=== PATIENT | female | born 1980 | race Caucasian/White ===

== ENCOUNTER → 2018-08-26 09:22 | Outpatient (CLI) | payer OTHER, SELFPAY ==
[2018-08-26 09:55] LABS: Basophils % 0.7 % (0.1-2.0); Eosinophils # 0.1 K/mm3 (0.0-0.4); Eosinophils % 1.7 % (0.1-12.0); Hematocrit 39.3 % (37.0-47.0); Hemoglobin 12.5 g/dL (12.2-16.2); Lymphocytes # 1.5 K/mm3 (0.7-4.5); Lymphocytes % 31.4 % (10-50); Mean Corpuscular HGB Conc 31.8 g/dL (31.8-35.4); Mean Corpuscular Hemoglobin 30.1 pg (27.0-31.2); Mean Corpuscular Volume 94.7 fl (81-99); Mean Platelet Volume 7.7 fl (7.4-10.4); Monocytes # 0.2 K/mm3 (0.1-1.0); Monocytes % 4.9 % (1.7-9.3); Neutrophils # 2.8 K/mm3 (1.8-7.8); Neutrophils % 61.2 % (37.0-80.0); Platelet Count 230 K/mm3 (142-424); Red Blood Count 4.15 M/mm3 (4.20-5.40); Red Cell Distribution Width 13.1 % (11.5-17.5); White Blood Count 4.6 K/mm3 (4.8-10.8)
[2018-08-26 10:10] VITALS: PULSE 56
--- NOTE | 2018-08-26 10:30 | MM_ITS ---
MM Dig screening mamm BI w/CAD ORDERING PHYSICIAN : Lauren Napoles PATIENT AGE: 38 years GENDER: Female COMPARISON: Baseline mammogram. No previous mammogram for comparison CT chest from April 2016 utilizing and slightly helpful. INDICATION: 38-year-old Routine the baseline: screening mammogram. No hormones. No new complaints. Noncontributory family history TECHNIQUE: Standard CC and MLO images were obtained. R2 CAD reviewed. FINDINGS: Mild to moderate breast density with moderate fibroglandular elements more evident at the left breast than right. Mild asymmetry.. CAD computer review highlights no areas of concern RIGHT BREAST:No areas of significant concern Minimal island of glandular tissue at the inferior lateral right breastq likely corresponds and stable to a area seen on previous CT study. LEFT BREAST:No areas of significant concern Fibroglandular elements most notable towards upper-outer quadrant IMPRESSION: Baseline mammogram. No suspicious findings. No areas of significant concern. Mild asymmetry Recommended and would encourage follow-up in one year to confirm stable baseline character given the mild asymmetry. BI-RADS Category: 2 Benign Finding(s) RECOMMENDED FOLLOW-UP: 1YR 1 YEAR FOLLOW-UP (A letter has been sent to the patient regarding results of the study.)
[2018-08-26 11:35] LABS: Alanine Aminotransferase 15 U/L (12-78); Albumin Level 3.6 gm/dL (3.4-5.0); Alkaline Phosphatase 38 U/L (46-116); Aspartate Amino Transferase 10 U/L (15-37); Bilirubin,Total 0.3 mg/dL (0.2-1.0); Blood Urea Nitrogen 10 mg/dL (7-18); Calcium 9.1 mg/dL (8.5-10.1); Carbon Dioxide 29 mmol/L (21.0-32.0); Chloride 101 mmol/L (98-107); Cholesterol 170 mg/dL (140-200); Creatinine,Serum 0.75 mg/dL (0.55-1.02); Estimated Glomerular Filt Rate 86 ml/min (>60); GFR (African American) 104 ML/MIN (>60); Globulin 3.6 gm/dl (1.3-3.2); Glucose 94 mg/dL (74-106); HDL Cholesterol 56 mg/dL (29-89); LDL Cholesterol 106 mg/dL (0-130); Sodium 147 mmol/L (136-145); T4 (Thyroxine) 8.2 ug/dl (4.7-13.3); Thyroid Stimulating Hormone 1.77 uIU/ml (0.358-3.740); Total Protein,Serum 7.2 gm/dL (6.4-8.2); Triglycerides 42 mg/dL (30-200); VLDL Cholesterol 8 mg/dL (0-40)
[2018-08-27 11:18] LABS: Hep A Ab, IgM Negative (Negative); Hepatitis B Core Antibody IgM Negative (Negative); Hepatitis B Surface Antigen Negative (Negative)
[2018-08-27 11:19] LABS: Hepatitis C Antibody 0.2 s/co ratio (0.0-0.9)
== END ==
PROVIDERS: PCP Physician Assistant; Visit Provider Nurse Practitioner Family
DX: Z12.31 Encounter for screening mammogram for malignant neoplasm of breast (principal); Z13.220 Encounter for screening for lipoid disorders; J44.9 Chronic obstructive pulmonary disease, unspecified; F41.9 Anxiety disorder, unspecified; F32.9 Major depressive disorder, single episode, unspecified
CPT/HCPCS: 36415; 77067; 80053; 80061; 80074; 84436; 84443; 85025; 94060; 94640

== ENCOUNTER → 2018-08-26 09:35 | Outpatient (CLI) | payer OTHER, SELFPAY | PROVIDERS: Visit Provider Nurse Practitioner Family | DX: Z11.59 Encounter for screening for other viral diseases (principal) ==

== ENCOUNTER → 2018-10-20 13:48 | Outpatient (CLI) | payer OTHER, SELFPAY ==
--- NOTE | 2018-10-20 13:49 | US_ITS ---
US transvaginal Ordering Physician: Kalin Slater MD Patient Age: 38 years: Female HISTORY: ITS.REASON: llqp, dyspareunia status post hysterectomy. TECHNIQUE: Transvaginal pelvic ultrasound COMPARISON : CT abdomen and pelvis from 09/28/2018 FINDINGS Uterus surgically removed . . Right ovary is been removed. Left ovary appears normal . Normal size left ovary measuring 2.8 x 1.9 x 2.45 cm. Scattered small follicles throughout. None of the follicles measuring over 6 mm size.. . No fluid in cul-de-sac. Bowel loops seen elsewhere throughout the pelvis. IMPRESSION: Uterus and right ovary surgically removed. Remaining left ovary appears normal, with scattered small follicles throughout. No fluid in cul-de-sac
== END ==
PROVIDERS: PCP Physician Assistant; Visit Provider Nurse Practitioner Obstetrics & Gynecology
DX: R10.32 Left lower quadrant pain (principal); N94.10 Unspecified dyspareunia
CPT/HCPCS: 76830

== ENCOUNTER → 2020-04-16 10:31 | Outpatient (CLI) | payer MEDICAID, SELFPAY ==
[2020-04-16 11:08] LABS: Basophils # 0.1 K/mm3 (0-0.2); Basophils % 0.5 % (0.1-2.0); Eosinophils # 0.1 K/mm3 (0.0-0.4); Eosinophils % 1.3 % (0.1-12.0); Hematocrit 40.4 % (37.0-47.0); Hemoglobin 13.1 g/dL (12.2-16.2); Lymphocytes # 1.8 K/mm3 (0.7-4.5); Lymphocytes % 19.8 % (10-50); Mean Corpuscular HGB Conc 32.5 g/dL (31.8-35.4); Mean Corpuscular Volume 95.4 fl (81-99); Mean Platelet Volume 7.9 fl (7.4-10.4); Monocytes # 0.6 K/mm3 (0.1-1.0); Monocytes % 6.5 % (1.7-9.3); Neutrophils # 6.6 K/mm3 (1.8-7.8); Neutrophils % 71.8 % (37.0-80.0); Platelet Count 249 K/mm3 (142-424); Red Blood Count 4.23 M/mm3 (4.20-5.40); Red Cell Distribution Width 12.9 % (11.5-17.5); White Blood Count 9.2 K/mm3 (4.8-10.8)
[2020-04-16 11:53] LABS: Chloride 104 mmol/L (98-107)
[2020-04-16 11:54] LABS: Potassium 4.5 mmoL/L (3.5-5.1); Sodium 138 mmol/L (136-145)
[2020-04-16 11:56] LABS: Alanine Aminotransferase 11 U/L (12-78); Albumin/Globulin Ratio 1.4 (1.1-1.8); Alkaline Phosphatase 29 U/L (38-126); Anion Gap 12.5 mEq/L (5-15); Aspartate Amino Transferase 25 U/L (14-36); Bilirubin,Total 0.5 mg/dl (0.2-1.3); Blood Urea Nitrogen 9 mg/dl (7-17); Carbon Dioxide 26 mmol/L (22.0-30.0); Estimated Glomerular Filt Rate 111 ml/min (>60); GFR (African American) 134 ML/MIN (>60); Globulin 2.9 g/dL (1.3-3.2); Total Protein,Serum 6.9 g/dl (6.3-8.2)
[2020-04-16 11:57] LABS: Calcium 9.4 mg/dl (8.4-10.2); Chol/HDL Ratio 3.8 (1-3.5); Cholesterol 207 mg/dl (140-200); Glucose 87 mg/dl (74-100); HDL Cholesterol 55 mg/dl (40-60); Triglycerides 74 mg/dl (30-150); VLDL Cholesterol 15 mg/dL (0-40)
[2020-04-16 12:08] LABS: Direct LDL Cholesterol 138.95 mg/dL (100-129)
[2020-04-16 12:13] LABS: Free Thyroxine Index 3.1 ug/dL (5.93-13.13); T4 (Thyroxine) 10.9 ug/dl (5.53-11.0); Triiodothryronine (T3) Uptake 28 % (23.5-40.5)
[2020-04-16 12:27] LABS: Thyroid Stimulating Hormone 3.25 uIU/mL (0.465-4.68)
[2020-04-16 13:32] LABS: Amphetamine/Metha Screen,Urine Negative ng/ml (<1000); Barbiturates Screen,Urine Negative ng/ml (<200)
[2020-04-16 13:33] LABS: Benzodiazepines Screen,Urine Negative ng/ml (<200); Cannabinoid Screen,Urine Positive ng/ml (<50)
[2020-04-16 13:34] LABS: Cocaine Screen,Urine Negative ng/ml (<300)
[2020-04-16 13:35] LABS: Methadone Screen,Urine Negative ng/ml (<300); Opiate Screen,Urine Negative ng/ml (<300)
[2020-04-16 13:36] LABS: Phencyclidine Screen,Urine Negative ng/ml (<25)
== END ==
PROVIDERS: Visit Provider Nurse Practitioner Psychiatric/Mental Health
DX: F31.64 Bipolar disorder, current episode mixed, severe, with psychotic features (principal)
CPT/HCPCS: 36415; 80053; 80061; 80305; 84436; 84443; 84479; 85025

== ENCOUNTER → 2020-11-20 18:09 | Outpatient (CLI) | payer MEDICAID, SELFPAY ==
[2020-11-20 18:33] LABS: Basophils % 0.6 % (0.1-2.0); Eosinophils # 0.1 K/mm3 (0.0-0.4); Eosinophils % 0.8 % (0.1-12.0); Hematocrit 38.7 % (37.0-47.0); Hemoglobin 12.6 g/dL (12.2-16.2); Lymphocytes # 1.9 K/mm3 (0.7-4.5); Lymphocytes % 25.7 % (10-50); Mean Corpuscular HGB Conc 32.6 g/dL (31.8-35.4); Mean Corpuscular Hemoglobin 30.8 pg (27.0-31.2); Mean Corpuscular Volume 94.5 fl (81-99); Mean Platelet Volume 8.9 fl (7.4-10.4); Monocytes # 0.4 K/mm3 (0.1-1.0); Monocytes % 5.1 % (1.7-9.3); Neutrophils % 67.7 % (37.0-80.0); Platelet Count 277 K/mm3 (142-424); Red Blood Count 4.09 M/mm3 (4.20-5.40); Red Cell Distribution Width 13.2 % (11.5-17.5); White Blood Count 7.4 K/mm3 (4.8-10.8)
[2020-11-20 18:37] LABS: Alanine Aminotransferase 15 U/L (12-78); Albumin Level 4.3 g/dl (3.5-5.0); Albumin/Globulin Ratio 1.5 (1.1-1.8); Alkaline Phosphatase 48 U/L (38-126); Anion Gap 11.8 mEq/L (5-15); Aspartate Amino Transferase 27 U/L (14-36); Bilirubin,Total 0.3 mg/dl (0.2-1.3); Blood Urea Nitrogen 3 mg/dl (7-17); Calcium 9.3 mg/dl (8.4-10.2); Carbon Dioxide 29 mmol/L (22.0-30.0); Chloride 102 mmol/L (98-107); Chol/HDL Ratio 4.2 (1-3.5); Cholesterol 237 mg/dl (140-200); Estimated Glomerular Filt Rate 110 ml/min (>60); GFR (African American) 133 ML/MIN (>60); Globulin 2.9 g/dL (1.3-3.2); Glucose 85 mg/dl (74-100); HDL Cholesterol 56 mg/dl (40-60); Potassium 4.8 mmoL/L (3.5-5.1); Sodium 138 mmol/L (136-145); Total Protein,Serum 7.2 g/dl (6.3-8.2); Triglycerides 95 mg/dl (30-150); VLDL Cholesterol 19 mg/dL (0-40)
[2020-11-20 18:48] LABS: Direct LDL Cholesterol 151.62 mg/dL (100-129)
[2020-11-20 18:55] LABS: 25-OH Vitamin D, Total 17.2 ng/mL (30-100); Free T4 (Free Thyroxine) 1.04 ng/dl (0.78-2.19)
[2020-11-20 19:08] LABS: Thyroid Stimulating Hormone 2.64 uIU/mL (0.465-4.68)
== END ==
PROVIDERS: Visit Provider Physician Assistant
DX: F32.9 Major depressive disorder, single episode, unspecified (principal); F41.9 Anxiety disorder, unspecified; J44.9 Chronic obstructive pulmonary disease, unspecified; K21.9 Gastro-esophageal reflux disease without esophagitis; E55.9 Vitamin D deficiency, unspecified
CPT/HCPCS: 80053; 80061; 82306; 84439; 84443; 85025

== ENCOUNTER → 2020-11-29 09:03 | Outpatient (CLI) | payer MEDICAID, SELFPAY ==
--- NOTE | 2020-11-29 09:03 | MM_ITS ---
PROCEDURE: MM DIG SCREENING MAMM BI W/CAD Digital Breast Tomosynthesis Included CLINICAL INDICATION: Breast cancer screening by mamm COMPARISON: MG [facility] MM Dig screening mamm BI w/CAD from 08/26/2018 TECHNIQUE: Standard CC and MLO images and 3D Tomosynthesis was obtained. R2 CAD reviewed. FINDINGS: The breasts are composed of scattered fibroglandular tissue. No dominant mass lesions, suspicious calcification or architectural distortion is noted. Benign appearing calcifications are noted bilaterally. IMPRESSION: No suspicious findings. BI-RAD Category: 2 Benign Finding(s) FOLLOW-UP: 1YR 1 Year Follow-up (A letter has been sent to the patient regarding results of the study.) Dictated by: Denise Barclay 11/30/2020 09:26 Denise Barclay in [place] 11/30/2020 09:26
== END ==
PROVIDERS: PCP Physician Assistant; Visit Provider Physician Assistant
DX: Z12.31 Encounter for screening mammogram for malignant neoplasm of breast (principal); J44.9 Chronic obstructive pulmonary disease, unspecified; F17.210 Nicotine dependence, cigarettes, uncomplicated
CPT/HCPCS: 77063; 77067; 94060; 94726; 94729

== ENCOUNTER 2020-12-03 19:22 | Emergency (ER) | payer MEDICAID, SELFPAY ==
[2020-12-03 19:44] VITALS: BP 100/69; PULSE 79; RESP 17; TEMP 37.1; O2SAT 97; BMI 27.3
[2020-12-03 19:51] VITALS: BP 100/69; PULSE 79; RESP 17; TEMP 37.1; O2SAT 97
[2020-12-03 20:00] LABS: UTC Strep Screen (Rapid) Negative (Negative)
--- NOTE | 2020-12-03 20:39 | HMH.EDUTC ---
[facility] [place] Clinical Impression: Pharyngitis Qualifiers: Pharyngitis/tonsillitis etiology: unspecified etiology Qualified Code(s): J02.9 - Acute pharyngitis, unspecified Disposition: Home, Self-Care Condition on Discharge: Good Instructions: DI for Pharyngitis/Tonsillopharyngitis -- Adult Additional Instructions: Drink plenty of fluids. Take tylenol or ibuprofen for pain or fever. Take the medications as directed. Follow up with your regular doctor. GO TO THE ER FOR ANY WORSENING SYMPTOMS Prescriptions: Azithromycin [Z-Kaleb 250mg Tab*] 250 mg PO UD DOSE PK #6 tab Transmission Status: Received by [facility] Referrals: Vivi Hernandez PA [Primary Care Provider] - Time of Disposition: 20:40 Medical Decision Making - Medical Records Medical records reviewed: No: I reviewed the patient's medical records. - Neno Inquiry Pt receiving controlled substance: No Vital Signs: 12/03/20 19:44 12/03/20 19:51 Temperature 98.7 F 98.7 F Temperature Source Oral Pulse Rate 79 Pulse Rate [Left] 79 Respiratory Rate 17 17 Blood Pressure 100/69 L Blood Pressure [Right Arm] 100/69 L Blood Pressure Mean [Right Arm] 79 02 Sat by Pulse Oximetry 97 - Lab Data Lab results reviewed: Yes: I reviewed the patient's lab results. Lab Results 12/03/20 19:52: Strep Scn Rapid Clinic Negative [facility] [place] HPI - General Stated complaint: sore throat Time Seen by Provider: 12/03/20 20:39 Mode of Arrival: Ambulatory Source of Information: Patient Limitations: No Limitations Description of Symptoms (Recalled from Triage Doc. by RN): Pt c/o throat feeling inflammed and wants a throat culture . HEENT Symptoms (Recalled from RN notes): Yes Resp Symptoms (Recalled from RN notes): No Skin Symptoms (Recalled from RN notes): No MS Symptoms (Recalled from RN notes): No Functional Status (Recalled from RN notes): wnl - History of Present Illness Provider Complaint: She states that she has had a scratchy throat for the past 2 days. She has several children are being treated for strep right now. She denies any fever or chills. - Related Data Previous Rx's Medication Instructions Recorded omeprazole 40 mg capsule,delayed 40 mg PO ONCE 90 Days #90 cap 09/27/18 release buspirone 10 mg tablet See Rx Instructions .ROUTE 08/01/19 .COMPLEX #60 unspecified risperidone 0.5 mg tablet See Rx Instructions .ROUTE 08/01/19 .COMPLEX #60 unspecified tiotropium bromide 1.25 See Rx Instructions .ROUTE 11/17/19 mcg/actuation mist for inhalation .COMPLEX #4 unspecified hydroxyzine pamoate 50 mg capsule See Rx Instructions .ROUTE 05/24/20 .COMPLEX #60 unspecified albuterol sulfate 90 mcg/actuation See Rx Instructions .ROUTE 11/16/20 aerosol inhaler .COMPLEX #18 g budesonide-formoterol HFA 160 2 puff INHALATION BID #10.2 g 11/16/20 mcg-4.5 mcg/actuation aerosol inhaler famotidine 20 mg tablet See Rx Instructions .ROUTE 11/16/20 .COMPLEX #180 tab fluticasone propionate 50 See Rx Instructions .ROUTE 11/16/20 mcg/actuation nasal .COMPLEX #9.9 g spray,suspension atorvastatin 10 mg tablet 10 mg PO HS #30 tab 11/21/20 cholecalciferol (vitamin D3) 25 25 mcg PO DAILY #30 cap 11/21/20 mcg (1,000 unit) capsule ergocalciferol (vitamin D2) 1,250 1,250 mcg PO WEEKLY #5 cap 11/21/20 mcg (50,000 unit) capsule Azithromycin [Z-Kaleb 250mg Tab*] 250 mg PO UD DOSE PK #6 tab 12/03/20 Allergies Allergy/AdvReac Type Severity Reaction Status Date / Time codeine [CODEINE] Allergy Unknown Verified 12/03/20 19:33 - Worker's Comp Is this a Worker's Comp case?: No [facility] History - Hepatitis A Screen Drug use history?: No High risk sexual behaviors?: No History of sexually transmitted infection?: No Currently employed?: No Childcare worker?: No Do you have indoor plumbing?: Yes Do you have electricity?: Yes Attestation statement:: This patient has been screened for Hepatitis A risk factors. I hav
== END 2020-12-03 20:43 | disposition home or self-care (01) ==
PROVIDERS: Emergency Provider Nurse Practitioner Family; PCP Physician Assistant
DX: J02.9 Acute pharyngitis, unspecified (principal); J44.9 Chronic obstructive pulmonary disease, unspecified; K21.9 Gastro-esophageal reflux disease without esophagitis; F41.8 Other specified anxiety disorders; Z79.899 Other long term (current) drug therapy
CPT/HCPCS: 87880; 99202; G0463

== ENCOUNTER 2021-10-07 16:16 | Emergency (ER) | payer MEDICAID, SELFPAY ==
--- NOTE | 2021-10-07 17:43 | HMH.EDUTC ---
[facility] [place] Clinical Impression: Strep throat Disposition: Home, Self-Care Condition on Discharge: Good Instructions: Strep Throat, DI for Strep Throat Additional Instructions: Drink plenty of fluids. Take tylenol or ibuprofen for pain or fever. Take the medications as directed. Follow up with your regular doctor. GO TO THE ER FOR ANY WORSENING SYMPTOMS Throw your tooth brush away and get a new one. Prescriptions: Ondansetron [Zofran 4mg ODT] 4 mg PO Q8HP PRN #20 tab PRN Reason: Nausea Transmission Status: Received by [facility] Amoxicillin/Potassium Clav [Amox-Clav 875-125 mg Tablet] 1 tab PO BID #20 tab Transmission Status: Received by [facility] Benzonatate [Benzonatate 100mg cap] 100 mg PO TIDP PRN #30 cap PRN Reason: Cough Transmission Status: Received by [facility] Referrals: Vivi Hernandez PA [Primary Care Provider] - Time of Disposition: 18:21 Medical Decision Making - Medical Records Medical records reviewed: No: I reviewed the patient's medical records. - Neno Inquiry Pt receiving controlled substance: No Vital Signs: 10/07/21 17:44 10/07/21 18:25 Temperature 98.3 F 98.2 F Temperature Source Oral Oral Pulse Rate 81 Pulse Rate [Left Radial] 83 Respiratory Rate 18 16 Blood Pressure 128/81 Blood Pressure [Right Arm] 130/86 Blood Pressure Mean [Right Arm] 100 02 Sat by Pulse Oximetry 98 Oxygen Delivery Method Room Air - Lab Data Lab results reviewed: Yes: I reviewed the patient's lab results. Lab Results 10/07/21 17:47: Strep Scn Rapid Clinic Positive [place] [facility] [place] - General Stated complaint: EAR PAin, fever,chills Time Seen by Provider: 10/07/21 17:43 - History of Present Illness Provider Complaint: She c/o ear pain and sore throat for the past 2 days. - Related Data Previous Rx's Medication Instructions Recorded omeprazole 40 mg capsule,delayed 40 mg PO ONCE 90 Days #90 cap 09/27/18 release buspirone 10 mg tablet See Rx Instructions .ROUTE 08/01/19 .COMPLEX #60 unspecified risperidone 0.5 mg tablet See Rx Instructions .ROUTE 08/01/19 .COMPLEX #60 unspecified albuterol sulfate 90 mcg/actuation See Rx Instructions .ROUTE 11/16/20 aerosol inhaler .COMPLEX #18 g famotidine 20 mg tablet See Rx Instructions .ROUTE 11/16/20 .COMPLEX #180 tab atorvastatin 10 mg tablet 10 mg PO HS #30 tab 11/21/20 cholecalciferol (vitamin D3) 25 25 mcg PO DAILY #30 cap 11/21/20 mcg (1,000 unit) capsule ergocalciferol (vitamin D2) 1,250 1,250 mcg PO WEEKLY #5 cap 11/21/20 mcg (50,000 unit) capsule Azithromycin [Z-Kaleb 250mg Tab*] 250 mg PO UD DOSE PK #6 tab 12/03/20 carbamide peroxide 6.5 % ear drops 5 drp OTIC DAILY 4 Days #15 ml 12/11/20 tiotropium bromide 18 mcg capsule 1 cap INHALATION DAILY #90 puff 01/22/21 with inhalation device fluticasone propionate 50 See Rx Instructions .ROUTE 03/08/21 mcg/actuation nasal .COMPLEX #16 g spray,suspension hydroxyzine pamoate 50 mg capsule See Rx Instructions .ROUTE 03/26/21 .COMPLEX #60 cap budesonide-formoterol HFA 160 2 inh INHALATION BID #10.2 g 07/03/21 mcg-4.5 mcg/actuation aerosol inhaler Amoxicillin/Potassium Clav 1 tab PO BID #20 tab 10/07/21 [Amox-Clav 875-125 mg Tablet] Benzonatate [Benzonatate 100mg 100 mg PO TIDP PRN #30 cap 10/07/21 cap] Ondansetron [Zofran 4mg ODT] 4 mg PO Q8HP PRN #20 tab 10/07/21 Allergies Allergy/AdvReac Type Severity Reaction Status Date / Time codeine [CODEINE] Allergy Unknown Verified 12/11/20 11:29 [facility] History - Hepatitis A Screen Attestation statement:: This patient has been screened for Hepatitis A risk factors. I have reviewed the patient's past medical history: Yes Medical History: Reports:: Anxiety, Asthma, Chronic Obstructive Pulmonary Disease (COPD), Depression, Gastroesophageal Reflux Disease(GERD) Denies:: Diabetes Mellitus Type 1 Other Medical History: Reports: Anemia
[2021-10-07 17:44] VITALS: BP 130/86; PULSE 83; RESP 18; TEMP 36.8; O2SAT 98; BMI 27.1
[2021-10-07 17:56] LABS: UTC Strep Screen (Rapid) Positive (Negative)
[2021-10-07 18:25] VITALS: BP 128/81; PULSE 81; RESP 16; TEMP 36.8; O2SAT 99
== END 2021-10-07 18:27 | disposition home or self-care (01) ==
PROVIDERS: Emergency Provider Nurse Practitioner Family; PCP Physician Assistant
DX: J02.0 Streptococcal pharyngitis (principal); F41.8 Other specified anxiety disorders; K21.9 Gastro-esophageal reflux disease without esophagitis; F17.210 Nicotine dependence, cigarettes, uncomplicated
CPT/HCPCS: 87880; 99212; G0463

== ENCOUNTER 2021-10-22 18:03 | Emergency (ER) | payer MEDICAID, SELFPAY ==
[2021-10-22 18:08] VITALS: BP 138/89; PULSE 98; RESP 16; TEMP 37.1; O2SAT 100; BMI 23.3
[2021-10-22 18:24] VITALS: BP 123/86; PULSE 88; RESP 18; TEMP 37.3; O2SAT 95; BMI 28.0
[2021-10-22 18:47] LABS: UTC Influenza A Antigen Negative (Negative)
[2021-10-22 18:48] LABS: UTC Influenza B Antigen Negative (Negative)
--- NOTE | 2021-10-22 19:12 | HMH.EDUTC ---
[facility] [place] Disposition Clinical Impression: Vaginal yeast infection Diarrhea Qualifiers: Diarrhea type: unspecified type Qualified Code(s): R19.7 - Diarrhea, unspecified Disposition: Home, Self-Care Condition on Discharge: Good Instructions: Vaginal Yeast Infection, Clostridium difficile Infection Additional Instructions: Drink plenty of fluids. Take tylenol or ibuprofen for pain or fever. Take the medications as directed. Follow up with your regular doctor. GO TO THE ER FOR ANY WORSENING SYMPTOMS Make sure you brink the stool sample soon. We need to check it for different infections. Prescriptions: Fluconazole [Diflucan 150mg tab] 150 mg PO ONCE #1 tab Transmission Status: Received by [facility] Nystatin [Nystatin Cr 100,000 Units/GM 30GM] 1 applicatio TP BID 14 Days #1 gm Transmission Status: Received by [facility] Referrals: Vivi Hernandez PA [Primary Care Provider] - Time of Disposition: 19:30 Medical Decision Making - Medical Records Medical records reviewed: No: I reviewed the patient's medical records. - Neno Inquiry Pt receiving controlled substance: No Vital Signs: 10/22/21 18:08 10/22/21 18:24 10/22/21 19:35 Temperature 98.8 F 99.1 F 99.1 F Temperature Source Oral Oral Pulse Rate 88 Pulse Rate [Right] 98 H 88 Respiratory Rate 16 18 18 Blood Pressure 123/86 Blood Pressure [Right Arm] 138/89 123/86 Blood Pressure Mean [Right Arm] 105 98 Blood Pressure Source [Right Arm] Automatic Cuff Blood Pressure Position [Right Arm] Sitting 02 Sat by Pulse Oximetry 100 95 Oxygen Delivery Method Room Air - Lab Data Lab Results 10/22/21 18:20: Influenza Type A Ag Negative, Influenza Type B Ag Negative [facility] [place] HPI - General Stated complaint: stomach, diarrhea, hot flashes, Time Seen by Provider: 10/22/21 19:12 Mode of Arrival: Ambulatory Source of Information: Patient Limitations: No Limitations Description of Symptoms (Recalled from Triage Doc. by RN): pt c/o hot flashes, diarrhea, night sweats, stomach churning, butt is inflammed and vaginal area affected too. . pts child is just getting over the flu. HEENT Symptoms (Recalled from RN notes): No Resp Symptoms (Recalled from RN notes): No Skin Symptoms (Recalled from RN notes): No MS Symptoms (Recalled from RN notes): No Functional Status (Recalled from RN notes): wnl - History of Present Illness Provider Complaint: She states that she had strep throat about 3 weeks ago and took antibiotics for it. Since then, she has had diarrhea since then. She also has irritation in the folds of her skin of her groin. - Related Data Previous Rx's Medication Instructions Recorded omeprazole 40 mg capsule,delayed 40 mg PO ONCE 90 Days #90 cap 09/27/18 release buspirone 10 mg tablet See Rx Instructions .ROUTE 08/01/19 .COMPLEX #60 unspecified risperidone 0.5 mg tablet See Rx Instructions .ROUTE 08/01/19 .COMPLEX #60 unspecified albuterol sulfate 90 mcg/actuation See Rx Instructions .ROUTE 11/16/20 aerosol inhaler .COMPLEX #18 g famotidine 20 mg tablet See Rx Instructions .ROUTE 11/16/20 .COMPLEX #180 tab atorvastatin 10 mg tablet 10 mg PO HS #30 tab 11/21/20 cholecalciferol (vitamin D3) 25 25 mcg PO DAILY #30 cap 11/21/20 mcg (1,000 unit) capsule ergocalciferol (vitamin D2) 1,250 1,250 mcg PO WEEKLY #5 cap 11/21/20 mcg (50,000 unit) capsule Azithromycin [Z-Kaleb 250mg Tab*] 250 mg PO UD DOSE PK #6 tab 12/03/20 carbamide peroxide 6.5 % ear drops 5 drp OTIC DAILY 4 Days #15 ml 12/11/20 tiotropium bromide 18 mcg capsule 1 cap INHALATION DAILY #90 puff 01/22/21 with inhalation device fluticasone propionate 50 See Rx Instructions .ROUTE 03/08/21 mcg/actuation nasal .COMPLEX #16 g spray,suspension hydroxyzine pamoate 50 mg capsule See Rx Instructions .ROUTE 03/26/21 .COMPLEX #60 cap budesonide-formoterol HFA 160 2 inh INHALATION BID #10.2 g 07/03/21 mcg-4.5 mcg/actuation aerosol in
[2021-10-22 19:35] VITALS: BP 123/86; PULSE 88; RESP 18; TEMP 37.3
== END 2021-10-22 19:36 | disposition home or self-care (01) ==
LOC: ER 18:09 → UTC 18:12
PROVIDERS: Emergency Provider Nurse Practitioner Family; PCP Physician Assistant
DX: B37.3 Candidiasis of vulva and vagina (principal); R19.7 Diarrhea, unspecified; F41.8 Other specified anxiety disorders; K21.9 Gastro-esophageal reflux disease without esophagitis; J44.9 Chronic obstructive pulmonary disease, unspecified; F17.210 Nicotine dependence, cigarettes, uncomplicated; Z88.5 Allergy status to narcotic agent; Z79.899 Other long term (current) drug therapy
CPT/HCPCS: 87804; 99212; G0463

== ENCOUNTER → 2021-10-23 12:18 | Outpatient (CLI) | payer MEDICAID, SELFPAY ==
[2021-10-23 12:26] LABS: Adenovirus F 40/41, stool Not Detected (NotDetected); Astrovirus Not Detected (NotDetected); Campylobacter Not Detected (NotDetected); Clostridium Difficile A/B, PCR Not Detected (NotDetected); Cryptosporidium Not Detected (NotDetected); Cyclospora Cayetanesis Not Detected (NotDetected); Entamoeba histolytica Not Detected (NotDetected); Enteroaggregative E coli Not Detected (NotDetected); Enteropathogenic E coli Not Detected (NotDetected); Enterotoxigenic E coli Not Detected (NotDetected); Giardia lamblia Not Detected (NotDetected); Norovirus Not Detected (NotDetected); Plesimonas Shigalloides, PCR Not Detected (NotDetected); Rotavirus A Not Detected (NotDetected); Salmonella, PCR Not Detected (NotDetected); Sapovirus Not Detected (NotDetected); Shiga-like toxin E coli Not Detected (NotDetected); Shigella Enterovasive E coli Not Detected (NotDetected); Vibrio Cholerae Not Detected (NotDetected); Vibrio, PCR Not Detected (NotDetected); Yersinia Entercolitica, PCR Not Detected (NotDetected)
== END ==
PROVIDERS: PCP Physician Assistant; Visit Provider Nurse Practitioner Family
DX: R19.7 Diarrhea, unspecified (principal)
CPT/HCPCS: 87507

== ENCOUNTER 2021-11-10 09:02 | Emergency (ER) | payer MEDICAID, SELFPAY ==
[2021-11-10 09:17] VITALS: BP 134/78; PULSE 75; RESP 19; TEMP 36.8; O2SAT 97; BMI 27.1
--- NOTE | 2021-11-10 09:51 | HMH.EDUTC ---
[facility] Clinical Impression: Otitis media Qualifiers: Otitis media type: suppurative Chronicity: acute Laterality: bilateral Recurrence: non-recurrent Spontaneous tympanic membrane rupture: without spontaneous rupture Qualified Code(s): H66.003 - Acute suppurative otitis media without spontaneous rupture of ear drum, bilateral Disposition: Home, Self-Care Condition on Discharge: Good Instructions: Middle Ear Infection Additional Instructions: Drink plenty of fluids. Take tylenol or ibuprofen for pain or fever. Take the medications as directed. Follow up with your regular doctor. GO TO THE ER FOR ANY WORSENING SYMPTOMS Prescriptions: Amoxicillin [Amoxicillin 875MG Tab] 875 mg PO Q12H #20 tab Transmission Status: Received by [facility] methylPREDNISolone [Medrol] 4 mg PO DIRECTED 6 Days #21 packet Transmission Status: Received by [facility] Referrals: Vivi Hernandez PA [Primary Care Provider] - Time of Disposition: 10:02 Medical Decision Making - Medical Records Medical records reviewed: No: I reviewed the patient's medical records. - Neno Inquiry Pt receiving controlled substance: No Vital Signs: 11/10/21 09:17 11/10/21 10:04 Temperature 98.3 F 98.3 F Temperature Source Oral Pulse Rate 75 Pulse Rate [Left] 75 Respiratory Rate 19 19 Blood Pressure 134/78 Blood Pressure [Right Arm] 134/78 Blood Pressure Mean [Right Arm] 96 02 Sat by Pulse Oximetry 97 - Lab Data Lab results reviewed: Yes: I reviewed the patient's lab results. [facility] - General Stated complaint: bilateral ear pain, fever Time Seen by Provider: 11/10/21 09:51 Mode of Arrival: Ambulatory Source of Information: Patient Limitations: No Limitations Description of Symptoms (Recalled from Triage Doc. by RN): pt c/o her ears burning, fever, cough and congestion since last night. HEENT Symptoms (Recalled from RN notes): Yes Resp Symptoms (Recalled from RN notes): Yes Skin Symptoms (Recalled from RN notes): No MS Symptoms (Recalled from RN notes): No Functional Status (Recalled from RN notes): wnl - History of Present Illness Provider Complaint: She c/o bilateral ear pain and pressure for the past 2 days. - Related Data Previous Rx's Medication Instructions Recorded omeprazole 40 mg capsule,delayed 40 mg PO ONCE 90 Days #90 cap 09/27/18 release buspirone 10 mg tablet See Rx Instructions .ROUTE 08/01/19 .COMPLEX #60 unspecified risperidone 0.5 mg tablet See Rx Instructions .ROUTE 08/01/19 .COMPLEX #60 unspecified albuterol sulfate 90 mcg/actuation See Rx Instructions .ROUTE 11/16/20 aerosol inhaler .COMPLEX #18 g famotidine 20 mg tablet See Rx Instructions .ROUTE 11/16/20 .COMPLEX #180 tab atorvastatin 10 mg tablet 10 mg PO HS #30 tab 11/21/20 cholecalciferol (vitamin D3) 25 25 mcg PO DAILY #30 cap 11/21/20 mcg (1,000 unit) capsule ergocalciferol (vitamin D2) 1,250 1,250 mcg PO WEEKLY #5 cap 11/21/20 mcg (50,000 unit) capsule Azithromycin [Z-Kaleb 250mg Tab*] 250 mg PO UD DOSE PK #6 tab 12/03/20 carbamide peroxide 6.5 % ear drops 5 drp OTIC DAILY 4 Days #15 ml 12/11/20 tiotropium bromide 18 mcg capsule 1 cap INHALATION DAILY #90 puff 01/22/21 with inhalation device fluticasone propionate 50 See Rx Instructions .ROUTE 03/08/21 mcg/actuation nasal .COMPLEX #16 g spray,suspension hydroxyzine pamoate 50 mg capsule See Rx Instructions .ROUTE 03/26/21 .COMPLEX #60 cap budesonide-formoterol HFA 160 2 inh INHALATION BID #10.2 g 07/03/21 mcg-4.5 mcg/actuation aerosol inhaler Amoxicillin/Potassium Clav 1 tab PO BID #20 tab 10/07/21 [Amox-Clav 875-125 mg Tablet] Benzonatate [Benzonatate 100mg 100 mg PO TIDP PRN #30 cap 10/07/21 cap] Ondansetron [Zofran 4mg ODT] 4 mg PO Q8HP PRN #20 tab 10/07/21 Fluconazole [Diflucan 150mg tab] 150 mg PO ONCE #1 tab 10/22/21 Nystatin [Nystatin Cr 100,000 1 applicatio TP BID 14 Days #1 gm 10/22/21 Units/GM
[2021-11-10 10:04] VITALS: BP 134/78; PULSE 75; RESP 19; TEMP 36.8
== END 2021-11-10 10:13 | disposition home or self-care (01) ==
PROVIDERS: Emergency Provider Nurse Practitioner Family; PCP Physician Assistant
DX: H66.003 Acute suppurative otitis media without spontaneous rupture of ear drum, bilateral (principal)
CPT/HCPCS: 99212; G0463

== ENCOUNTER 2021-12-05 10:45 | Emergency (ER) | payer MEDICAID, SELFPAY ==
[2021-12-05 12:26] VITALS: BP 116/73; PULSE 89; RESP 17; TEMP 36.6; O2SAT 99; BMI 26.8
[2021-12-05 12:30] LABS: Strep Scrn Group A (Rapid) Negative (Negative)
--- NOTE | 2021-12-05 12:44 | HMH.EDUTC ---
[facility] [place] Disposition Clinical Impression: Otitis media Qualifiers: Otitis media type: unspecified Laterality: left Qualified Code(s): H66.92 - Otitis media, unspecified, left ear Sinusitis Qualifiers: Sinusitis location: unspecified location Chronicity: unspecified Qualified Code(s): J32.9 - Chronic sinusitis, unspecified Disposition: Home, Self-Care Condition on Discharge: Good Instructions: Sinusitis, DI for Sinusitis, Amoxicillin and Clavulanic Acid, Middle Ear Infection Additional Instructions: *Monitor Temp, Over the counter Motrin or Tylenol as directed/as needed Tylenol every 4 hours and Motrin every 6 hours (as long as your family doctor has told you that you can take it) for fever or pain. and straight to ER if unable to lower temp less than 101.0 after medication given *Warm salt water gargles may help to soothe the throat *Throat Lozenges *Warm fluids like tea with honey may help to soothe the throat *Sleep elevated *Humidifier/Vaporizer Your throat swab was sent for culture. Those results are typically sent to your primary care. Be sure to follow up in 2-3 days with your family doctor/primary care physician if no improvement so they can review those result and treat if necessary. If you don?t have a primary care doctor, I recommend you get one but in the mean time, you will have to return to a walk in clinic Follow up IMMEDIATELY for new or worsening symptoms or no Noticeable improvement over the next 48-72 hours. 911 for difficulty breathing or swallowing Prescriptions: Amoxicillin/Potassium Clav [Amox-Clav 875-125 mg Tablet] 1 tab PO BID #20 tab Transmission Status: Pending to [facility] Fluticasone Propionate [Flonase 50mcg nasal spray 16gm] 1 spr NS DAILY #1 each Transmission Status: Pending to [facility] Referrals: Vivi Hernandez PA [Primary Care Provider] - As needed Time of Disposition: 12:55 Medical Decision Making - Neno Inquiry Pt receiving controlled substance: No Neno was queried for this patient: No Vital Signs: 12/05/21 12:26 Temperature 97.9 F Temperature Source Oral Pulse Rate [Left] 89 Respiratory Rate 17 Blood Pressure [Right Arm] 116/73 Blood Pressure Mean [Right Arm] 87 02 Sat by Pulse Oximetry 99 - Lab Data Lab Results 12/05/21 12:16: Group A Strep Rapid Negative Orders (Tests/Meds): ORDERS Category Date Time Status Strep Screen Confirmation Stat Micro 12/05/21 12:16 Received [facility] [place] HPI - General Stated complaint: dairrhea, sore throat, ear pain Time Seen by Provider: 12/05/21 12:44 Mode of Arrival: Ambulatory Source of Information: Patient Limitations: No Limitations Description of Symptoms (Recalled from Triage Doc. by RN): pt c/o a sore throat, warm ears, and diarrhea x1wk HEENT Symptoms (Recalled from RN notes): Yes Resp Symptoms (Recalled from RN notes): No Skin Symptoms (Recalled from RN notes): No MS Symptoms (Recalled from RN notes): No Functional Status (Recalled from RN notes): wnl - History of Present Illness Provider Complaint: Patient states that she thinks she may have strep throat States that she has been having sore throat, sinus congsetion and pressure States that her ears have been hurting and feel warm so she is not sure if she may have a fever or not so she came in to get checked - Related Data Previous Rx's Medication Instructions Recorded omeprazole 40 mg capsule,delayed 40 mg PO ONCE 90 Days #90 cap 09/27/18 release buspirone 10 mg tablet See Rx Instructions .ROUTE 08/01/19 .COMPLEX #60 unspecified risperidone 0.5 mg tablet See Rx Instructions .ROUTE 08/01/19 .COMPLEX #60 unspecified albuterol sulfate 90 mcg/actuation See Rx Instructions .ROUTE 11/16/20 aerosol inhaler .COMPLEX #18 g famotidine 20 mg tablet See Rx Instructions .ROUTE 11/16/20 .COMPLEX #180 tab atorvastatin 10 mg tablet 10 mg PO HS #30 tab 11/21/20 cholecalciferol (vitamin D3) 25 25 mcg PO DAILY #30 cap
[2021-12-05 13:10] VITALS: BP 116/73; PULSE 89; RESP 17; TEMP 36.6
== END 2021-12-05 13:11 | disposition home or self-care (01) ==
PROVIDERS: Emergency Provider Nurse Practitioner; PCP Physician Assistant
DX: H66.92 Otitis media, unspecified, left ear (principal); J32.9 Chronic sinusitis, unspecified
CPT/HCPCS: 87430; 99212; G0463

== ENCOUNTER → 2022-04-17 10:16 | Outpatient (CLI) | payer MEDICAID, SELFPAY ==
--- NOTE | 2022-04-17 10:17 | MM_ITS ---
PROCEDURE INFORMATION: Exam: MG Bilateral Screening 3D Mammography Exam date and time: 04/17/2022 10:17 AM Age: 41 years old Clinical indication: Screening. No family history of breast cancer. TECHNIQUE: Imaging protocol: Bilateral Screening tomosynthesis and 2D mammography including computer-aided detection (CAD) when performed. COMPARISON: 1. MG MM DIG SCREENING MAMM BI W/CAD 11/29/2020 9:05 AM 2. MG [facility]BI MM Dig screening mamm BI w/CAD 08/26/2018 10:42 AM FINDINGS: MAMMOGRAPHY: Breast composition: There are scattered areas of fibroglandular density. Mass: No suspicious mass. Architectural distortion: None. Calcifications: No suspicious calcifications. Asymmetric density: No developing asymmetry. Skin thickening: None. Axillary adenopathy: None. IMPRESSION: No mammographic evidence of malignancy. Annual screening is recommended unless otherwise clinically indicated. ASSESSMENT: BI-RADS Category 1: Negative
== END ==
PROVIDERS: PCP Physician Assistant; Visit Provider Physician Assistant
DX: Z12.31 Encounter for screening mammogram for malignant neoplasm of breast (principal)
CPT/HCPCS: 77063; 77067

== ENCOUNTER → 2022-04-24 09:39 | Outpatient (CLI) | payer MEDICAID, SELFPAY ==
[2022-04-24 10:30] VITALS: PULSE 62; PULSE 64
[2022-04-24 11:00] VITALS: BP 103/76; PULSE 69; RESP 18; O2SAT 98
[2022-04-24 11:10] VITALS: BP 114/77; PULSE 89; RESP 20; O2SAT 98
== END ==
PROVIDERS: PCP Physician Assistant; Visit Provider Physician Assistant
DX: R06.02 Shortness of breath (principal); J44.9 Chronic obstructive pulmonary disease, unspecified
CPT/HCPCS: 94060; 94618; 94640; 94727; 94729

== ENCOUNTER 2023-02-15 15:18 | Emergency (ER) | payer MEDICAID, SELFPAY ==
[2023-02-15 15:19] VITALS: BP 146/77; PULSE 79; RESP 16; TEMP 36.6; O2SAT 99; BMI 23.9
--- NOTE | 2023-02-15 15:31 | EXP.UTC ---
Discharge Plan Disposition Patient Disposition: Home, Self-Care Condition: Good Prescriptions Prescriptions: New prednisone 10 mg tablet 10 mg PO BID 3 Days Qty: 6 0RF ondansetron 4 mg Tablet,Disintegrating 4 mg PO Q8H PRN (Reason: Nausea) Qty: 12 0RF cefdinir 300 mg capsule 300 mg PO BID Qty: 20 0RF No Action prednisone 20 mg tablet 20 mg PO BID Qty: 10 0RF Rx Instructions: administer with food or milk fluticasone propionate 50 mcg/actuation spray,suspension See Rx Instructions .ROUTE .COMPLEX Qty: 16 1RF Dose Instruction: USE 2 SPRAYS IN EACH NOSTRIL ONCE A DAY DIRECTED SHAKE GENTLY Rx Instructions: USE 2 SPRAYS IN EACH NOSTRIL ONCE A DAY DIRECTED SHAKE GENTLY spinosad [Natroba] 0.9 % suspension 120 ml TP Q7D 0 Days Qty: 120 2RF aripiprazole [Abilify] 10 mg tablet 10 mg PO DAILY Qty: 90 3RF famotidine 20 mg tablet See Rx Instructions .ROUTE .COMPLEX Qty: 180 2RF Dose Instruction: TAKE 1 TABLET BY MOUTH TWICE DAILY Rx Instructions: TAKE 1 TABLET BY MOUTH TWICE DAILY Spiriva with HandiHaler 18 mcg capsule, w/inhalation device 1 cap INHALATION DAILY Qty: 90 3RF Rx Instructions: puncture 1 cap using device; one dose = 2 inhalations multivitamin [Daily Multi-Vitamin] Tablet 1 tab PO DAILY Qty: 90 3RF levocetirizine [Xyzal] 5 mg tablet 5 mg PO DAILY Qty: 90 3RF budesonide-formoterol [Symbicort] 160-4.5 mcg/actuation HFA aerosol inhaler See Rx Instructions .ROUTE .COMPLEX Qty: 10.2 12RF Dose Instruction: INHALE 2 PUFF TWICE A DAY..RINSE MOUTH AFTER EACH USE Rx Instructions: INHALE 2 PUFF TWICE A DAY..RINSE MOUTH AFTER EACH USE fluticasone propionate [Flonase Allergy Relief] 50 mcg/actuation spray,suspension 1 spray NS BID 30 Days Qty: 9.9 12RF Rx Instructions: administer into each nostril hydroxyzine pamoate 50 mg capsule See Rx Instructions .ROUTE .COMPLEX Qty: 180 1RF Dose Instruction: TAKE 1 CAPSULE BY MOUTH TWICE DAILY NEEDED FOR ANXIETY *MAY CAUSE DROWSINESS* Rx Instructions: TAKE 1 CAPSULE BY MOUTH TWICE DAILY NEEDED FOR ANXIETY *MAY CAUSE DROWSINESS* albuterol sulfate [ProAir HFA] 90 mcg/actuation HFA aerosol inhaler See Rx Instructions .ROUTE .COMPLEX Qty: 8.5 2RF Dose Instruction: INHALE 2 PUFFS BY MOUTH EVERY 4 TO 6 HOURS NEEDED FOR SHORTNESS OF BREATH OR WHEEZING Rx Instructions: INHALE 2 PUFFS BY MOUTH EVERY 4 TO 6 HOURS NEEDED FOR SHORTNESS OF BREATH OR WHEEZING atorvastatin 10 mg tablet See Rx Instructions .ROUTE .COMPLEX Qty: 90 3RF Dose Instruction: TAKE 1 TABLET BY MOUTH AT BEDTIME Rx Instructions: TAKE 1 TABLET BY MOUTH AT BEDTIME clonidine HCl 0.1 mg tablet See Rx Instructions .ROUTE .COMPLEX Qty: 60 2RF Dose Instruction: TAKE 1 TABLET BY MOUTH TWICE DAILY NEEDED FOR HOT FLASHES Rx Instructions: TAKE 1 TABLET BY MOUTH TWICE DAILY NEEDED FOR HOT FLASHES buspirone 10 mg tablet See Rx Instructions .ROUTE .COMPLEX Qty: 180 2RF Dose Instruction: TAKE 1 TABLET BY MOUTH TWICE DAILY Rx Instructions: TAKE 1 TABLET BY MOUTH TWICE DAILY scopolamine base 1 mg over 3 days patch 3 day 1 patch transdermal Q3D PRN (Reason: motion sickness) Qty: 4 0RF ondansetron 8 mg tablet,disintegrating 8 mg PO Q8H PRN (Reason: nausea and vomiting) Qty: 20 0RF spinosad [Natroba] 0.9 % suspension 120 ml topical Q7D Qty: 120 0RF spinosad [Natroba] 0.9 % suspension 120 ml topical Q7D Qty: 120 0RF nystatin 30 GM cream 1 applicatio TP BID 14 Days Qty: 1 2RF Referrals Follow up/Referrals: Vivi Hernandez PA [Primary Care Provider] - See instructions Activity Restrictions/Add. Instructions Additional Instructions/Restrictions: Drink plenty of fluids. Take tylenol or ibuprofen for pain or fever. Take the medications as directed. Follow up with your re
[2023-02-15 15:44] LABS: UTC Influenza A Antigen Negative (Negative); UTC Strep Screen (Rapid) Negative (Negative)
[2023-02-15 15:45] LABS: UTC Influenza B Antigen Negative (Negative)
[2023-02-15 16:19] VITALS: BP 146/77; PULSE 79; RESP 16; TEMP 36.6; O2SAT 99
== END 2023-02-15 16:20 | disposition home or self-care (01) ==
PROVIDERS: Emergency Provider Nurse Practitioner Family; PCP Physician Assistant
DX: U07.1 COVID-19 (principal); R50.9 Fever, unspecified; R19.7 Diarrhea, unspecified; R11.0 Nausea; F17.210 Nicotine dependence, cigarettes, uncomplicated; J44.9 Chronic obstructive pulmonary disease, unspecified; K21.9 Gastro-esophageal reflux disease without esophagitis; J30.9 Allergic rhinitis, unspecified; F41.9 Anxiety disorder, unspecified; F32.A Depression, unspecified
CPT/HCPCS: 87804; 87880; 99212; 99214; G0463

== ENCOUNTER 2023-10-20 13:36 | Outpatient (CLI) | payer MEDICAID, SELFPAY ==
--- NOTE | 2023-10-20 13:36 | MM_ITS ---
PROCEDURE INFORMATION: Exam: MG Bilateral Screening 3D Mammography Exam date and time: 10/20/2023 1:34 PM Age: 43 years old Clinical indication: Screening. No family history of breast cancer. TECHNIQUE: Imaging protocol: Bilateral Screening tomosynthesis and 2D mammography including computer-aided detection (CAD) when performed. COMPARISON: 1. MG MM DIG SCREENING MAMM BI W/CAD 04/17/2022 10:17 AM 2. MG MM DIG SCREENING MAMM BI W/CAD 11/29/2020 9:05 AM 3. MG SCBI MM Dig screening mamm BI w/CAD 08/26/2018 10:42 AM FINDINGS: MAMMOGRAPHY: Breast composition: There are scattered areas of fibroglandular density. Mass: None. Architectural distortion: None. Calcifications: No suspicious calcifications. Asymmetric density: None. Skin thickening: None. Axillary adenopathy: None. IMPRESSION: No mammographic evidence of malignancy. Annual screening is recommended unless otherwise clinically indicated. ASSESSMENT: BI-RADS Category 1: Negative
== END 2023-10-20 23:59 ==
LOC: RAD 13:36
PROVIDERS: PCP Physician Assistant; Visit Provider Physician Assistant
DX: Z12.31 Encounter for screening mammogram for malignant neoplasm of breast (principal)
CPT/HCPCS: 77063; 77067